=== PATIENT | female | born 1970 | race American Indian/Alaskan Native ===

== ENCOUNTER 2016-04-09 18:13 | Emergency (ER) | payer MEDICARE ==
[2016-04-09] MEDS ORDERED: TYLENOL ONE (19:07)
[2016-04-09] MEDS: TYLENOL PO ONE (19:15)
--- NOTE | 2016-04-10 04:42 | Emergency Department Report ---
ED General Adult HPI - General Chief complaint: Headache Stated complaint: LEFT SIDE OF FACE/NECK/JAW/BIT BY DOG /CHERIE Time Seen by Provider: 04/10/16 04:31 Source: patient Mode of arrival: Ambulatory Limitations: No Limitations - History of Present Illness Initial comments: This is a 45-year-old female with a long-standing history of migraine headaches. She states she gets 2 or 3 a week. She has tried different medications in the past for maintenance therapy without significant success. She usually takes Tylenol at home when she gets a headache. She states that she is able to fall asleep she is usually able to have the headache resolved. She states today was worse. Otherwise it feels typical the left temporal aspect. She decided to come to the ED for a shot. She reports on her way to the hospital when the dog bit her in her left thigh. She also gives a report of left throat/ear pain for the past 3 days. She states she was seen by her physician for this 2 days ago had a throat swab done that was negative. Her primary physician told her was because of a reactive lymph node. Onset/Timin -: Gradual Location: head Radiation: non-radiation Severity scale (0 -10): 8 Consistency: constant Improves with: rest Worsens with: other (light and noise) Associated Symptoms: chest pain. denies: loss of appetite, weakness Treatments Prior to Arrival: other (tylenol) - Related Data Home Medications Medication Instructions Recorded Confirmed Last Taken Gabapentin [Neurontin] 600 mg PO Q8H 05/27/15 05/27/15 1 Day Ago 600mg Insulin Detemir [Levemir VIAL] 45 units SQ BID 05/27/15 05/27/15 1 Day Ago 45units Previous Rx's Medication Instructions Recorded Last Taken Type ALBUTEROL Inhaler [ProAir HFA 2 puff IH QID PRN #1 inhalation 05/27/15 Unknown Rx Inhaler] Oseltamivir [Tamiflu] 75 mg PO BID #10 cap 05/27/15 Unknown Rx guaiFENesin/CODEINE [Robitussin AC] 5 ml PO Q6H PRN #100 ml 05/27/15 Unknown Rx Amoxicillin/K Clav Tab [Augmentin 1 each PO Q12HR #14 tablet 04/10/16 Unknown Rx 500 MG TAB] Allergies Allergy/AdvReac Type Severity Reaction Status Date / Time metoclopramide HCl Allergy hallucinati Verified 10/06/15 12:54 [From Regmary] ons ED Review of Systems ROS: Stated complaint: LEFT SIDE OF FACE/NECK/JAW/BIT BY DOG /CHERIE Other details as noted in HPI Constitutional: denies: chills, fever Eyes: denies: eye pain, eye discharge, vision change ENT: ear pain, throat pain Respiratory: denies: cough, shortness of breath, wheezing Cardiovascular: chest pain. denies: palpitations Endocrine: no symptoms reported Gastrointestinal: denies: abdominal pain, nausea, diarrhea Genitourinary: denies: urgency, dysuria, discharge Musculoskeletal: denies: back pain, joint swelling, arthralgia Skin: denies: rash, lesions Neurological: headache. denies: weakness, paresthesias Psychiatric: denies: anxiety, depression Hematological/Lymphatic: denies: easy bleeding, easy bruising ED Past Medical Hx - Past Medical History Previous Medical History?: Yes Hx Hypertension: Yes Hx CVA: No Hx Congestive Heart Failure: No Hx Diabetes: Yes Hx Deep Vein Thrombosis: No Hx Pulmonary Embolism: No Hx GERD: No Hx Liver Disease: No Hx Renal Disease: No Hx Sickle Cell Disease: No Hx Arthritis: No Hx Headaches / Migraines: Yes Hx Seizures: No Hx Kidney Stones: No Hx Psychiatric Treatment: No Hx Asthma: Yes Hx COPD: No Hx Tuberculosis: No Hx Dementia: No Hx HIV: No Additional medical history: high cholesterol, migraines, chronic back pain - Surgical History Past Surgical History?: Yes Hx Coronary Stent: No Hx Open Heart Surgery: No Hx Pacemaker: No Hx Internal Defibrillator: No Hx Cholecystectomy: No Hx Appendectomy: No Hx Breast Surgery: No Additional Surgical History: tonsillectomy, tubal ligation hysterectomy. laproscopy - Social History Smoking Status: Current Every Day Smoker Substance Use Type: Alcohol - Medications Home Medications: Home Medications Medication Instructions Recorded Confirmed Last Taken Type ALBUTEROL Inhaler [ProAir HFA 2 puff IH QID PRN #1 inhalation 05/27/15 Unknown Rx Inhaler] Gabapentin [Neurontin] 600 mg PO Q8H 05/27/15 05/27/15 1 Day Ago History 600mg Insulin Detemir [Levemir VIAL] 45 units SQ BID 05/27/15 05/27/15 1 Day Ago History 45units Oseltamivir [Tamiflu] 75 mg PO BID #10 cap 05/27/15 Unknown Rx guaiFENesin/CODEINE [Robitussin AC] 5 ml PO Q6H PRN #100 ml 05/27/15 Unknown Rx Amoxicillin/K Clav Tab [Augmentin 1 each PO Q12HR #14 tablet 04/10/16 Unknown Rx 500 MG TAB] ED Physical Exam - General Limitations: No Limitations General appearance: alert, in distress (mild due to pains) - Head Head exam: Present: atraumatic, normocephalic, other (no tenderness to palpation. No temporal artery region tenderness.) - Eye Eye exam: Present: normal appearance, PERRL, EOMI - ENT ENT exam: Present: normal orophraynx, mucous membranes moist, TM's normal bilaterally - Neck Neck exam: Present: normal inspection, full ROM, lymphadenopathy (isolated lymphadenitis in the anterior cervical chain noted.). Absent: meningismus - Respiratory Respiratory exam: Present: normal lung sounds bilaterally. Absent: respiratory distress - Cardiovascular Cardiovascular Exam: Present: regular rate, normal rhythm. Absent: systolic murmur, diastolic murmur, rubs, gallop - GI/Abdominal GI/Abdominal exam: Present: soft, normal bowel sounds - Extremities Exam Extremities exam: Present: full ROM, tenderness (left lateral thigh aspect with area dog bite with some area of tenderness and ecchymoses and several canine teeth willis that are clean and scabbed over.) - Back Exam Back exam: Present: normal inspection - Neurological Exam Neurological exam: Present: alert, oriented X3, CN II-XII intact, normal gait, reflexes normal, other (moving all 4 extremities appropriately.) - Psychiatric Psychiatric exam: Present: normal affect, normal mood - Skin Skin exam: Present: warm, dry, intact, normal color. Absent: rash ED Course Vital Signs 04/09/16 04/09/16 18:54 23:17 Temperature 98.5 F Pulse Rate 80 85 Respiratory 16 20 Rate Blood Pressure 123/80 Blood Pressure 120/84 [Right] O2 Sat by Pulse 96 96 Oximetry - Reevaluation(s) Reevaluation #1: 04/10/16 04:51 I feel bad this patient has had to wait so long to be seen. Requesting Toradol or narcotic pain shot. I told her I would give her a Toradol shot in the lower to go home and get rest. She is comfortable with this plan. She states this is what typically happens here. She also remote story of the lymph node discomfort on the left aspect of her neck. I can appreciate this as well. The ears look fine now. I suspect that the ear pain is due to referred pain. The throat is fairly unremarkable as well. It's a mute point as I will be treating her with antibiotics anyway for the dog bite. I do not appreciate any concerning features in regards to the dog bite. Minimal soft tissue damage. She is up-to-date on her tetanus. While patient was waiting in triage she described feeling some tightness across her chest that she attributed to her head pain. She did have EKG done which was unremarkable. She was given Tylenol which resolved the discomfort in her chest as well. I do not suspect acute cardiac In regards to the headache, patient is nonfocal neurologically here. I do not suspect significant pathology. Safe for home 04/10/16 04:53 ED Medical Decision Making - EKG Data -: EKG Interpreted by Me EKG shows normal: sinus rhythm, axis, intervals, QRS complexes, ST-T waves Rate: normal - EKG Data Interpretation: normal EKG Critical care attestation.: If time is entered above; I have spent that time in minutes in the direct care of this critically ill patient, excluding procedure time. ED Disposition Clinical Impression: Lymphadenopathy, anterior cervical, Dog bite of extremity Migraine Qualifiers: Migraine type: without aura Status migrainosus presence: with status migrainosus Intractability: not intractable Qualified Code(s): G43.001 - Migraine without aura, not intractable, with status migrainosus Disposition: DISCHARGED TO HOME OR SELFCARE Is pt being admited?: No Does the pt Need Aspirin: No Condition: Stable Instructions: Animal Bite (ED) Additional Instructions: Take Tylenol or throat lozenges as needed for throat pain. Rest at home today. Drink plenty of fluids. Keep bite wound clean. Take the antibiotics as prescribed. Prescriptions: Amoxicillin/K Clav Tab [Augmentin 500 MG TAB] 1 each PO Q12HR #14 tablet Referrals: PRIMARY CARE, [Primary Care Provider] - 3-5 Days Time of Disposition: 04:45
[2016-04-10] MEDS: TORADOL IM ONE (05:11)
[2016-04-10 05:15] VITALS: BP 120/77
== END 2016-04-10 05:17 | disposition home or self-care (01) ==
LOC: ED 18:13
DX: S71.152A Open bite, left thigh, initial encounter (principal); G43.001 Migraine without aura, not intractable, with status migrainosus; R59.0 Localized enlarged lymph nodes; I10 Essential (primary) hypertension; E11.9 Type 2 diabetes mellitus without complications; J45.909 Unspecified asthma, uncomplicated; E78.00 Pure hypercholesterolemia, unspecified; G89.29 Other chronic pain; F17.200 Nicotine dependence, unspecified, uncomplicated; Z90.710 Acquired absence of both cervix and uterus; Z90.89 Acquired absence of other organs; Z98.51 Tubal ligation status; Z88.8 Allergy status to other drugs, medicaments and biological substances; W54.0XXA Bitten by dog, initial encounter; Y93.89 Activity, other specified; Y99.8 Other external cause status; Y92.89 Other specified places as the place of occurrence of the external cause
CPT/HCPCS: 93005; 93010; 96372; 99282; J1885

== ENCOUNTER 2016-09-30 15:17 | Emergency (ER) | payer MEDICARE ==
--- NOTE | 2016-09-30 16:56 | Emergency Department Report ---
Entered by JORDON HOOVER, acting as scribe for DORIAN BLACKWELL NP. Chief Complaint: Abdominal Pain Stated Complaint: BLADDER PAIN Time Seen by Provider: 09/30/16 16:46 - HPI History of Present Illness: 45 y/o female with Hx of HTN, chronic back pain, migraines, presents with bladder pain and inability to void since 1300 today. Sx include CHAPA and hyperglycemia. Pt denies still getting a menstrual cycle. - ROS Review of Systems: +bladder pain + inability to void + CHAPA +hyperglycemia - Exam Vital Signs: Vital Signs 09/30/16 16:51 Temperature 97.8 F Pulse Rate 82 Respiratory 18 Rate Blood Pressure 129/89 O2 Sat by Pulse 100 Oximetry Physical Exam: obese abd: diffuse abd tenderness, no rebound, no guarding. MSE screening note: Focused history and physical exam performed. Due to findings the following was ordered: labs ED Disposition for MSE Condition: Stable This documentation as recorded by the scribeSNEHA RYAN,accurately reflects the service I personally performed and the decisions made by ROSALVA woods TRACY M, NP.
[2016-09-30 17:09] LABS: Basophils % (Auto) 0.5 % (0.0-1.8); Eosinophils % (Auto) 1.6 % (0.0-4.3); Hematocrit 41.8 % (30.3-42.9); Hemoglobin 14.1 gm/dl (10.1-14.3); Mean Corpuscular HGB Conc 34 % (30-34); Mean Corpuscular Hemoglobin 28 pg (28-32); Mean Corpuscular Volume 84 fl (79-97); Platelet Count 235 K/mm3 (140-440); Red Cell Distribution Width 14.2 % (13.2-15.2); White Blood Count 8.4 K/mm3 (4.5-11.0)
[2016-09-30 17:49] LABS: Alanine Aminotransferase 32 units/L (7-56); Albumin 4.3 g/dL (3.9-5); Albumin/Globulin Ratio 1.1 %; Alkaline Phosphatase 121 units/L (35-129); Anion Gap 22 mmol/L; Blood Urea Nitrogen 8 mg/dL (7-17); Calcium 9.3 mg/dL (8.4-10.2); Carbon Dioxide 20 mmol/L (22-30); Chloride 93.1 mmol/L (98-107); Glucose 382 mg/dL (65-100); Potassium 4.6 mmol/L (3.6-5.0); Sodium 130 mmol/L (137-145); Total Protein 8.3 g/dL (6.3-8.2)
[2016-09-30 17:55] LABS: Bilirubin,Urine NEG (Negative); Blood,Urine NEG (Negative); Ketones,Urine NEG (Negative); Leukocyte Esterase,Urine NEG (Negative); Nitrite,Urine NEG (Negative); Protein,Urine <15 mg/dL mg/dL (Negative); RBC,Urine < 1.0 /HPF (0.0-6.0); Urobilinogen,Urine < 2.0 mg/dL (<2.0)
[2016-09-30] MEDS ORDERED: TYLENOL ONE (21:05)
[2016-09-30] MEDS ORDERED: TYLENOL PO ONE (21:05)
[2016-10-01] MEDS ORDERED: ZOFRAN IV ONE (02:54)
[2016-10-01] MEDS ORDERED: MORPHINE IV ONE (02:54)
[2016-10-01] MEDS ORDERED: NACL 0.9% 1000 ML 1,000 ML IV ONE (02:54)
--- NOTE | 2016-10-01 02:59 | Emergency Department Report ---
ED General Adult HPI - General Chief complaint: Hyperglycemia Stated complaint: BLADDER PAIN Time Seen by Provider: 09/30/16 16:46 Source: patient, family Mode of arrival: Ambulatory Limitations: No Limitations - History of Present Illness Initial comments: PATIENT STATED THAT SHE IS OUT OF HER INSULIN AND SHE ALSO C/O URINE RETENTION. ALSO C/O HEADACHE MIGRAINE. -: Gradual, Last night Severity scale (0 -10): 8 - Related Data Home Medications Medication Instructions Recorded Confirmed Last Taken Gabapentin [Neurontin] 600 mg PO Q8H 05/27/15 05/27/15 1 Day Ago 600mg Insulin Detemir [Levemir VIAL] 45 units SQ BID 05/27/15 05/27/15 1 Day Ago 45units Previous Rx's Medication Instructions Recorded Last Taken Type ALBUTEROL Inhaler [ProAir HFA 2 puff IH QID PRN #1 inhalation 05/27/15 Unknown Rx Inhaler] Oseltamivir [Tamiflu] 75 mg PO BID #10 cap 05/27/15 Unknown Rx guaiFENesin/CODEINE [Robitussin AC] 5 ml PO Q6H PRN #100 ml 05/27/15 Unknown Rx Amoxicillin/K Clav Tab [Augmentin 1 each PO Q12HR #14 tablet 04/10/16 Unknown Rx 500 MG TAB] Allergies Allergy/AdvReac Type Severity Reaction Status Date / Time metoclopramide HCl Allergy hallucinati Verified 10/06/15 12:54 [From Alfonso] ons ED Review of Systems ROS: Stated complaint: BLADDER PAIN Other details as noted in HPI Comment: All other systems reviewed and negative Constitutional: denies: chills, fever ENT: denies: ear pain, dental pain Respiratory: denies: cough, shortness of breath, SOB with exertion Cardiovascular: denies: palpitations Endocrine: denies: excessive sweating Gastrointestinal: denies: abdominal pain, nausea, vomiting Genitourinary: denies: urgency, frequency Neurological: denies: headache ED Past Medical Hx - Past Medical History Hx Hypertension: Yes Hx CVA: No Hx Congestive Heart Failure: No Hx Diabetes: Yes Hx Deep Vein Thrombosis: No Hx Pulmonary Embolism: No Hx GERD: No Hx Liver Disease: No Hx Renal Disease: No Hx Sickle Cell Disease: No Hx Arthritis: No Hx Headaches / Migraines: Yes Hx Seizures: No Hx Kidney Stones: No Hx Psychiatric Treatment: No Hx Asthma: Yes Hx COPD: No Hx Tuberculosis: No Hx Dementia: No Hx HIV: No Additional medical history: high cholesterol, migraines, chronic back pain - Surgical History Hx Coronary Stent: No Hx Open Heart Surgery: No Hx Pacemaker: No Hx Internal Defibrillator: No Hx Cholecystectomy: No Hx Appendectomy: No Hx Breast Surgery: No Additional Surgical History: tonsillectomy, tubal ligation hysterectomy. laproscopy - Social History Smoking Status: Current Some Day Smoker Substance Use Type: Alcohol - Medications Home Medications: Home Medications Medication Instructions Recorded Confirmed Last Taken Type ALBUTEROL Inhaler [ProAir HFA 2 puff IH QID PRN #1 inhalation 05/27/15 Unknown Rx Inhaler] Gabapentin [Neurontin] 600 mg PO Q8H 05/27/15 05/27/15 1 Day Ago History 600mg Insulin Detemir [Levemir VIAL] 45 units SQ BID 05/27/15 05/27/15 1 Day Ago History 45units Oseltamivir [Tamiflu] 75 mg PO BID #10 cap 05/27/15 Unknown Rx guaiFENesin/CODEINE [Robitussin AC] 5 ml PO Q6H PRN #100 ml 05/27/15 Unknown Rx Amoxicillin/K Clav Tab [Augmentin 1 each PO Q12HR #14 tablet 04/10/16 Unknown Rx 500 MG TAB] ED Physical Exam - General Limitations: No Limitations General appearance: alert, in no apparent distress - Head Head exam: Present: atraumatic, normocephalic - Eye Eye exam: Present: normal appearance - ENT ENT exam: Present: normal exam - Neck Neck exam: Present: normal inspection, full ROM. Absent: tenderness, meningismus - Respiratory Respiratory exam: Present: normal lung sounds bilaterally. Absent: respiratory distress, wheezes, rales, rhonchi, chest wall tenderness - Cardiovascular Cardiovascular Exam: Present: regular rate, normal rhythm, normal heart sounds - GI/Abdominal GI/Abdominal exam: Present: soft. Absent: tenderness, guarding, rebound - Extremities Exam Extremities exam: Present: normal inspection - Back Exam Back exam: Present: normal inspection - Neurological Exam Neurological exam: Present: alert, oriented X3, CN II-XII intact - Skin Skin exam: Present: warm, normal color ED Course Vital Signs 09/30/16 09/30/16 09/30/16 16:51 21:04 21:10 Temperature 97.8 F Pulse Rate 82 80 Respiratory 18 18 18 Rate Blood Pressure 129/89 144/108 Blood Pressure [Left] O2 Sat by Pulse 100 100 Oximetry 09/30/16 10/01/16 10/01/16 22:10 02:09 02:10 Temperature 98.2 F Pulse Rate 89 Respiratory 20 20 20 Rate Blood Pressure Blood Pressure 112/78 [Left] O2 Sat by Pulse 98 98 Oximetry 10/01/16 10/01/16 03:27 03:57 Temperature Pulse Rate Respiratory 20 20 Rate Blood Pressure Blood Pressure [Left] O2 Sat by Pulse Oximetry ED Medical Decision Making - Lab Data Result diagrams: 09/30/16 16:59 09/30/16 16:59 Critical care attestation.: If time is entered above; I have spent that time in minutes in the direct care of this critically ill patient, excluding procedure time. ED Disposition Clinical Impression: Hyperglycemia, Back pain Disposition: DC-01 TO HOME OR SELFCARE Is pt being admited?: No Does the pt Need Aspirin: No Condition: Stable Referrals: PRIMARY CARE, [Primary Care Provider] - 3-5 Days
[2016-10-01 05:53] VITALS: BP 120/80
== END 2016-10-01 06:00 | disposition home or self-care (01) ==
LOC: ED 15:17
DX: E11.65 Type 2 diabetes mellitus with hyperglycemia (principal); M54.9 Dorsalgia, unspecified; I10 Essential (primary) hypertension; G43.909 Migraine, unspecified, not intractable, without status migrainosus; J45.909 Unspecified asthma, uncomplicated; E78.00 Pure hypercholesterolemia, unspecified; G89.29 Other chronic pain; Z72.0 Tobacco use; Z79.4 Long term (current) use of insulin; Z88.8 Allergy status to other drugs, medicaments and biological substances; Z79.01 Long term (current) use of anticoagulants
CPT/HCPCS: 36415; 51702; 80053; 81001; 82010; 82805; 82962; 85025; 96361; 96372; 96374; 96375; 99284; J2270; J2405; J7030; J1815

== ENCOUNTER 2017-03-06 14:42 | Outpatient (CLI) | payer MEDICARE ==
--- NOTE | 2017-03-06 22:17 | XRay Report ---
FINAL REPORT EXAM: XR SPINE LUMBOSACRAL 6+V HISTORY: LUMBAR PAIN TECHNIQUE: Seven views lumbosacral spine Comparison: None FINDINGS: Normal bony mineralization. L5/S1 disc space narrowing. L4 and L5 marginal osteophytes. No spondylolisthesis. Normal lumbar lordosis. No spondylolisthesis with flexion or extension. No scoliosis. Clips in the right upper quadrant. SI joints are. Sacral arches are intact. There may be a left L3 pars interarticularis defect. This would be an unusual site for a pars defect however. IMPRESSION: No acute compression fracture. Mild degenerative spondylosis. No change in the normal alignment with flexion or extension. Mild L5/S1 degenerative disc narrowing. Possible left L3 pars interarticularis defect which would be an unusual location. If it will private branch exchange operator, recommend CT or MR.
== END 2017-03-06 14:43 | disposition home or self-care (01) ==
LOC: SPVIMAG 14:42
PROVIDERS: ATTEND Physical Medicine & Rehabilitation
DX: M47.896 Other spondylosis, lumbar region (principal); M40.46 Postural lordosis, lumbar region; M25.78 Osteophyte, vertebrae; I10 Essential (primary) hypertension; J45.909 Unspecified asthma, uncomplicated; F17.200 Nicotine dependence, unspecified, uncomplicated
CPT/HCPCS: 72114

== ENCOUNTER 2018-03-30 23:01 | Emergency (ER) | payer MEDICARE ==
[2018-03-30 23:43] VITALS: BP 134/89
[2018-03-31 00:01] LABS: Hematocrit 39.1 % (30.3-42.9); Hemoglobin 13.7 gm/dl (10.1-14.3); Mean Corpuscular HGB Conc 35 % (30-34); Mean Corpuscular Volume 83 fl (79-97); Platelet Count 248 K/mm3 (140-440); Red Blood Count 4.71 M/mm3 (3.65-5.03); Red Cell Distribution Width 14.8 % (13.2-15.2)
[2018-03-31 00:20] LABS: BUN/Creatinine Ratio 10; Blood Urea Nitrogen 10 mg/dL (7-17); Hemolysis Index 8
--- NOTE | 2018-03-31 00:20 | XRay Report ---
FINAL REPORT PROCEDURE: XR CHEST ROUTINE 2V TECHNIQUE: PA and lateral chest radiographs were obtained. CPT 36679 HISTORY: Shortness of breath COMPARISON: No prior studies are available for comparison. FINDINGS: Heart: Normal. Mediastinum/Vessels: Normal. Lungs/Pleural space: Normal. Bony thorax: No acute osseous abnormality. Other: IMPRESSION: Normal examination.
[2018-03-31] MEDS ORDERED: NACL 0.9% 1000 ML 1,000 ML IV ONE (01:15)
[2018-03-31] MEDS ORDERED: HumuLIN R SUB-Q ONE (02:10)
[2018-03-31 02:12] LABS: Basophils % (Manual) 0 % (0.0-1.8); Eosinophils % (Manual) 0 % (0.0-4.3); RBC Morphology Normal; Total Cells Counted 100
[2018-03-31 02:13] LABS: Large Platelets Few
[2018-03-31] MEDS ORDERED: BENADRYL IV STA (03:32)
[2018-03-31] MEDS ORDERED: TORADOL IV STA (03:32)
--- NOTE | 2018-03-31 06:57 | Emergency Department Report ---
ED Headache HPI - General Chief Complaint: Chest Pain Stated Complaint: CHEST PAIN/HEADACHE Time Seen by Provider: 03/31/18 01:39 - History of Present Illness Timing/Duration: 4-6 hours Quality: mild, moderate Head Injury Location: occipital, parietal Recent Head Trauma: occasional headaches (knwon history of migraines) Associated Symptoms: other (also has a little chest ache which is worse with range of motion, but she wanted to get checked out as well. She reports no hemoptysis, hematemesis, no sputum production. No fever, chills, sweats, palpitations, shortness of breath). denies: fatigue, facial pain, fever/chills, nasal congestion, nasal drainage, stiff neck, vision changes Allergies/Adverse Reactions: Allergies metoclopramide HCl [From Reglan] Allergy (Verified 10/06/15 12:54) hallucinations Home Medications: Ambulatory Orders ALBUTEROL Inhaler (OR & NICU) [ProAir HFA Inhaler] 2 puff IH QID PRN #1 inhalation 05/27/15 Gabapentin [Neurontin] 600 mg PO Q8H 05/27/15 Insulin Detemir [Levemir VIAL] 45 units SQ BID 05/27/15 Oseltamivir [Tamiflu] 75 mg PO BID #10 cap 05/27/15 guaiFENesin/CODEINE [Robitussin AC] 5 ml PO Q6H PRN #100 ml 05/27/15 Amoxicillin/K Clav Tab [Augmentin 500 MG TAB] 1 each PO Q12HR #14 tablet 04/10/16 Butalb/Acetamin/Caff 50-325-40 [Fioricet] 1 tab PO Q8HR PRN #30 tablet 03/31/18 ED Review of Systems ROS: Stated complaint: CHEST PAIN/HEADACHE Other details as noted in HPI Constitutional: denies: chills, fever Eyes: denies: eye pain, eye discharge, vision change ENT: denies: ear pain, throat pain Respiratory: denies: cough, shortness of breath, wheezing Cardiovascular: denies: chest pain, palpitations Endocrine: no symptoms reported Gastrointestinal: denies: abdominal pain, nausea, diarrhea Genitourinary: denies: urgency, dysuria, discharge Musculoskeletal: denies: back pain, joint swelling, arthralgia Skin: denies: rash, lesions Neurological: denies: headache, weakness, paresthesias Psychiatric: denies: anxiety, depression Hematological/Lymphatic: denies: easy bleeding, easy bruising ED Past Medical Hx - Past Medical History Previous Medical History?: Yes Hx Hypertension: Yes Hx CVA: No Hx Congestive Heart Failure: No Hx Diabetes: Yes Hx Deep Vein Thrombosis: No Hx Pulmonary Embolism: No Hx GERD: No Hx Liver Disease: No Hx Renal Disease: No Hx Sickle Cell Disease: No Hx Arthritis: No Hx Headaches / Migraines: Yes Hx Seizures: No Hx Kidney Stones: No Hx Psychiatric Treatment: No Hx Asthma: Yes Hx COPD: No Hx Tuberculosis: No Hx Dementia: No Hx HIV: No Additional medical history: high cholesterol, migraines, chronic back pain. enlarged heart - Surgical History Past Surgical History?: Yes Hx Coronary Stent: No Hx Open Heart Surgery: No Hx Pacemaker: No Hx Internal Defibrillator: No Hx Cholecystectomy: No Hx Appendectomy: No Hx Breast Surgery: No Additional Surgical History: tonsillectomy, tubal ligation hysterectomy. laproscopy - Social History Smoking Status: Current Some Day Smoker Substance Use Type: Alcohol - Medications Home Medications: Home Medications Medication Instructions Recorded Confirmed Last Taken Type ALBUTEROL Inhaler (OR & NICU) 2 puff IH QID PRN #1 inhalation 05/27/15 Unknown Rx [ProAir HFA Inhaler] Gabapentin [Neurontin] 600 mg PO Q8H 05/27/15 05/27/15 1 Day Ago History ~05/26/15 600mg Insulin Detemir [Levemir VIAL] 45 units SQ BID 05/27/15 05/27/15 1 Day Ago History ~05/26/15 45units Oseltamivir [Tamiflu] 75 mg PO BID #10 cap 05/27/15 Unknown Rx guaiFENesin/CODEINE [Robitussin AC] 5 ml PO Q6H PRN #100 ml 05/27/15 Unknown Rx Amoxicillin/K Clav Tab [Augmentin 1 each PO Q12HR #14 tablet 04/10/16 Unknown R x 500 MG TAB] Butalb/Acetamin/Caff 50-325-40 1 tab PO Q8HR PRN #30 tablet 03/31/18 Unknown Rx [Fioricet] ED Physical Exam - General Limitations: Physical Limitation General appearance: alert, in no apparent distress - Head Head exam: Present: atraumatic, normocephalic - Eye Eye exam: Present: normal appearance, PERRL Pupils: Present: normal accommodation - ENT ENT exam: Present: normal exam, mucous membranes moist, other (negative. Funduscopic examination) - Neck Neck exam: Present: normal inspection, meningismus. Absent: tenderness - Respiratory Respiratory exam: Present: normal lung sounds bilaterally. Absent: respiratory distress - Cardiovascular Cardiovascular Exam: Present: regular rate, normal rhythm. Absent: systolic murmur, diastolic murmur, rubs, gallop - GI/Abdominal GI/Abdominal exam: Present: soft, normal bowel sounds - Extremities Exam Extremities exam: Present: normal inspection - Back Exam Back exam: Present: normal inspection - Neurological Exam Neurological exam: Present: alert, oriented X3 - Psychiatric Psychiatric exam: Present: normal affect, normal mood - Skin Skin exam: Present: warm, dry, intact, normal color. Absent: rash ED Course Vital Signs 03/30/18 03/31/18 03/31/18 23:38 03:55 04:25 Temperature 98.4 F Pulse Rate 91 H Respiratory 18 20 20 Rate Blood Pressure 134/89 O2 Sat by Pulse 97 Oximetry ED Medical Decision Making - Lab Data Result diagrams: 03/30/18 23:48 03/30/18 23:48 Critical care attestation.: If time is entered above; I have spent that time in minutes in the direct care of this critically ill patient, excluding procedure time. ED Disposition Clinical Impression: Migraine, Acute chest wall pain Disposition: - TO HOME OR SELFCARE Is pt being admited?: No Does the pt Need Aspirin: No Condition: Stable Instructions: Chest Pain (ED), Costochondritis (ED), Acute Headache (ED) Prescriptions: Butalb/Acetamin/Caff 50-325-40 [Fioricet] 1 tab PO Q8HR PRN #30 tablet PRN Reason: Headache Referrals: DANA ERWIN MD [Primary Care Provider] - 3-5 Days [facility] [Provider Group] - 3-5 Days
== END 2018-03-31 07:40 | disposition home or self-care (01) ==
LOC: ED 23:01
DX: G43.909 Migraine, unspecified, not intractable, without status migrainosus (principal); R07.89 Other chest pain; I10 Essential (primary) hypertension; E11.9 Type 2 diabetes mellitus without complications; J45.909 Unspecified asthma, uncomplicated; F17.200 Nicotine dependence, unspecified, uncomplicated; E78.00 Pure hypercholesterolemia, unspecified; G89.29 Other chronic pain; Z98.51 Tubal ligation status; Z90.710 Acquired absence of both cervix and uterus; Z90.89 Acquired absence of other organs; Z79.899 Other long term (current) drug therapy; Z88.1 Allergy status to other antibiotic agents
CPT/HCPCS: 36415; 71046; 80048; 82962; 84484; 85007; 85025; 93005; 93010; 96372; 96374; 96375; 99284; J1200; J1885; J7030; J1815